=== PATIENT | female | born 1950 | race African-American/Black ===

== ENCOUNTER 2017-08-11 17:51 | Emergency (ER) | payer BC, MEDICARE | END 2017-08-11 18:50 | disposition home or self-care (01) | LOC: BURERS 17:51 | DX: M79.662 Pain in left lower leg (principal); R16.1 Splenomegaly, not elsewhere classified; I10 Essential (primary) hypertension; E03.9 Hypothyroidism, unspecified | CPT/HCPCS: 99283 ==

== ENCOUNTER 2020-05-04 18:04 | Emergency (ER) | payer MEDICARE, BC ==
[2020-05-05 18:22] LABS: SARS-CoV-2 MS2 Positive; SARS-CoV-2 N Gene Negative; SARS-CoV-2 S Gene Negative; SARS-CoV-2 by NAA Not Detected (NotDetected); SARS-CoV-2 orf1ab Negative
== END 2020-05-04 18:55 | disposition home or self-care (01) ==
LOC: BURERS 18:04
DX: Z20.822 Contact with and (suspected) exposure to COVID-19 (principal); I10 Essential (primary) hypertension; E03.9 Hypothyroidism, unspecified
CPT/HCPCS: 87635; 99283; U0003

== ENCOUNTER 2020-10-23 04:26 | Emergency (ER) | payer MEDICARE, BC ==
[2020-10-23] MEDS ORDERED: HYDROcodone/Acetaminophen 5/325 mg Tablet ONE (05:17)
[2020-10-23] MEDS ORDERED: Ibuprofen 800 MG TAB ONE (05:18)
== END 2020-10-23 05:46 | disposition home or self-care (01) ==
LOC: BURERS 04:26
DX: M47.812 Spondylosis without myelopathy or radiculopathy, cervical region (principal); I10 Essential (primary) hypertension; E03.9 Hypothyroidism, unspecified; E78.5 Hyperlipidemia, unspecified
CPT/HCPCS: 72040

== ENCOUNTER 2020-12-21 14:09 | Emergency (ER) | payer MEDICARE, BC ==
[2020-12-22 16:25] LABS: SARS-CoV-2 PCR by NAA Not Detected (NotDetected)
== END 2020-12-21 14:55 | disposition home or self-care (01) ==
LOC: BURERS 14:09
DX: Z20.822 Contact with and (suspected) exposure to COVID-19 (principal); I10 Essential (primary) hypertension; E03.9 Hypothyroidism, unspecified; E78.5 Hyperlipidemia, unspecified
CPT/HCPCS: U0003; U0005; 99283

== ENCOUNTER 2021-05-05 11:44 | Emergency (ER) | payer MEDICARE, BC ==
[2021-05-05 20:13] LABS: SARS-CoV-2 PCR by NAA DETECTED (NotDetected)
== END 2021-05-05 12:15 | disposition home or self-care (01) ==
LOC: BURERS 11:44
DX: U07.1 COVID-19 (principal); I10 Essential (primary) hypertension; E03.9 Hypothyroidism, unspecified; E78.5 Hyperlipidemia, unspecified; E78.00 Pure hypercholesterolemia, unspecified
CPT/HCPCS: 99283; U0003; U0005

== ENCOUNTER 2022-08-30 12:33 | Emergency (ER) | payer MEDICARE, BC ==
[~2022-08-30 12:33] MED LIST: Iopamidol 370 76% 100 ML VIAL ONE
[2022-08-30] MEDS ORDERED: Ondansetron PF 4 MG/2 ML Vial ONE (13:01)
[2022-08-30] MEDS ORDERED: Famotidine 20 MG TAB ONE (13:01)
[2022-08-30 13:09] LABS: #Lymphocytes 1.1 thou/uL (1.20-3.40); #Monocytes 0.3 thou/uL (0.11-0.59); #Neutrophils 5.6 thou/uL (1.40-6.50); %Basophils 0.5 % (0.0-1.0); %Eosinophils 0.2 % (0.0-10.0); %Lymphocytes 15.3 % (21.0-51.0); %Monocytes 4.7 % (0.0-10.0); %Neutrophils 79.2 % (42.0-75.0); Hemoglobin 14.3 g/dL (12.0-16.0); Mean Corpuscular HGB CONC 32.5 g/dL (32.0-36.0); Mean Corpuscular Hemoglobin 30.2 pg (27.0-31.0); Mean Corpuscular Volume 92.9 fl (78.0-98.0); Mean Platelet Volume 7.9 fL (7.4-10.4); Platelet Count 187 10x3/uL (130-400); RBC Distribution Width 12.6 % (11.5-14.5); Red Blood Cell (RBC) Count 4.75 mill/uL (4.20-5.40)
[2022-08-30 13:24] LABS: Bilirubin Negative (Negative); Blood, Urine Negative (Negative); Clarity Clear (Clear); Glucose, Urine (Dipstick) Negative (Negative); Ketone, Urine Negative (Negative); Leukocyte Negative (Negative); Nitrite Negative (Negative); Protein, Urine (Dipstick) 30 mg/dL (Neg-Trace); Urobilinogen 0.2 mg/dL (Less than 2); pH, Urine 7.5 (5.0-9.0)
[2022-08-30 13:25] LABS: ALT (SGPT) 17 U/L (8-55); AST (SGOT) 22 U/L (5-34); Albumin 4.2 g/dL (3.4-4.8); Alkaline Phosphatase 86 U/L (40-110); Anion Gap 14 mmol/L (10-20); BUN (Urea Nitrogen) 11 mg/dL (9.8-20.1); Bilirubin, Total 0.9 mg/dL (0.2-1.2); Calc. Creatinine Clearance 0 mL/min (70-130); Carbon Dioxide 26 mmol/L (23-31); Chloride 103 mmol/L (98-107); Estimated GFR 68; Globulin 4.4 g/dL (2.4-3.5); Glucose 131 mg/dL (83-110); Lipase 15 U/L (8-78); Potassium 3.8 mmol/L (3.5-5.1); Protein, Total 8.6 g/dL (5.8-8.1); Sodium 139 mmol/L (136-145)
[2022-08-30 13:33] LABS: Bacteria/HPF None Seen HPF (None Seen); RBC/HPF 0-3 HPF (0-3); Squamous Epithelial 0-3 HPF (0-3); WBC/HPF None Seen HPF (0-3)
== END 2022-08-30 15:17 | disposition home or self-care (01) ==
LOC: BURERS 12:33
DX: R10.30 Lower abdominal pain, unspecified (principal); I10 Essential (primary) hypertension; E03.9 Hypothyroidism, unspecified; E78.00 Pure hypercholesterolemia, unspecified; Z79.899 Other long term (current) drug therapy
CPT/HCPCS: 74177; 80053; 81003; 81015; 83605; 83690; 84484; 85025; 93005; 96361; 96374; J2405; Q9967

== ENCOUNTER 2022-09-09 12:29 | Emergency (ER) | payer MEDICARE, BC ==
[2022-09-09] MEDS ORDERED: Ibuprofen 200 MG TAB ONE (13:33)
== END 2022-09-09 14:16 | disposition home or self-care (01) ==
LOC: BURERS 12:29
DX: M77.8 Other enthesopathies, not elsewhere classified (principal); I10 Essential (primary) hypertension